=== PATIENT | male | born 1965 | race Native Hawaiian/Other Pacific Islander ===

== ENCOUNTER 2019-01-10 22:02 | Emergency (ER) | payer MEDICAID, OTHER ==
[2019-01-10 22:02] VITALS: BMI 30.8
[2019-01-10 22:25] VITALS: BP 162/87; PULSE 84; RESP 20; TEMP 98.3; O2SAT 96
--- NOTE | 2019-01-10 22:45 | C.PDOC ---
History Of Present Illness 53 year old male had accident back in March which caused him lower back pain, he did PT with relief but since then he has had episodes of lower back pain. Today he reports lower back pain radiating down his left buttock and thigh. 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 Denies other complaints. Time Seen by Provider: 01/10/19 22:32 Chief Complaint (Nursing): Back Pain History Per: Patient History/Exam Limitations: no limitations Onset/Duration Of Symptoms: Days Current Symptoms Are (Timing): Still Present Quality Of Discomfort: Unable To Describe Previous Symptoms: Back Pain, Prior Injury Associated Symptoms: None Recent travel outside of the [place]: No Past Medical History Reviewed: Historical Data, Nursing Documentation, Vital Signs Vital Signs: Last Vital Signs Temp 98.3 F 01/10/19 22:22 Pulse 84 01/10/19 22:22 Resp 20 01/10/19 22:22 BP 162/87 H 01/10/19 22:22 Pulse Ox 96 01/10/19 22:22 - Medical History PMH: Diabetes, HTN Denies: Chronic Kidney Disease - [facility] Procedures MEASURE OF CARDIAC SAMPL & PRESSURE, L HEART, PERC APPROACH (04/01/16) PLAIN RADIOGRAPHY OF LEFT HEART USING OTHER CONTRAST (04/01/16) PLAIN RADIOGRAPHY OF MULT COR ART USING OTH CONTRAST (04/01/16) Family History: States: Unknown Family Hx - Social History Hx Tobacco Use: Yes Hx Alcohol Use: No Hx Substance Use: No - Immunization History Hx Tetanus Toxoid Vaccination: No Hx Influenza Vaccination: No Hx Pneumococcal Vaccination: No Review Of Systems Constitutional: Negative for: Fever, Chills Eyes: Negative for: Pain, Redness ENT: Negative for: Mouth Swelling Cardiovascular: Negative for: Chest Pain, Palpitations Respiratory: Negative for: Cough, Shortness of Breath Gastrointestinal: Negative for: Nausea, Vomiting, Diarrhea Genitourinary: Negative for: Dysuria, Hematuria Musculoskeletal: Positive for: Back Pain Skin: Negative for: Rash Neurological: Negative for: Weakness, Numbness Physical Exam - Physical Exam Appears: Well, Non-toxic, No Acute Distress Skin: Normal Color, Warm, No Rash Head: Atraumatic, Normacephalic Eye(s): bilateral: Normal Inspection, PERRL, EOMI Oral Mucosa: Moist Neck: Normal ROM, Supple Chest: Symmetrical Respiratory: No Accessory Muscle Use, Other (Normal inspiratory effort) Gastrointestinal/Abdominal: Soft, No Distention Back: No Vertebral Tenderness, Paraspinal Tenderness (Lumbar), Straight Leg Raising (Left positive), Other (Tenderness to left buttock area) Extremity: Normal ROM (x4) Neurological/Psych: Oriented x3, Normal Speech, Normal Cranial Nerves (Grossly intact), Normal Motor, Normal Sensation Gait: Steady ED Course And Treatment O2 Sat by Pulse Oximetry: 96 Medical Decision Making Medical Decision Making: Tramadol given, patient stable for dc to follow up with primary. 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 - Scribe Statement The provider has reviewed the documentation as recorded by the Scribe Erasmo Gordon All medical record entries made by the Amiibranda were at my direction and personally dictated by me. I have reviewed the chart and agree that the record accurately reflects my personal performance of the history, physical exam, medical decision making, and the department course for this patient. I have also personally directed, reviewed, and agree with the discharge instructions and disposition.
== END 2019-01-10 22:56 | disposition home or self-care (01) ==
LOC: C.ER 22:02
DX: M54.5 Low back pain (principal); E11.9 Type 2 diabetes mellitus without complications; I10 Essential (primary) hypertension; Z72.0 Tobacco use